=== PATIENT | male | born 1955 | race Caucasian/White ===

== ENCOUNTER 2025-06-30 08:52 | Day surgery (SDC) | payer MEDICARE, BC ==
[~2025-06-30 08:52] MED LIST: Phenylephrine 1% 10 MG/ML SDV ONE; Sodium Chloride 0.9% 10 ML Syringe FLUSH PRN; Sodium Chloride 0.9% 10 ML Syringe FLUSH SCH; fentaNYL 100 MCG/2 ML SDV ONE; fentaNYL 250 MCG/5 ML SDV ONE; propofoL 500 MG/50 ML 50 ML ONE
[2025-06-30] MEDS: Lactated Ringers 1,000 ML IV SCH (09:25)
[2025-06-30] MEDS: oxyCODONE ER 10 MG TAB.ER PO SCH (09:25)
[2025-06-30] MEDS ORDERED: Lactated Ringers 1,000 ML ONE (10:28)
[2025-06-30] MEDS ORDERED: ePHEDrine 50 MG/ML SDV ONE (10:51)
[2025-06-30] MEDS ORDERED: propofoL 500 MG/50 ML 50 ML ONE (10:56)
[2025-06-30] MEDS: Morphine 8 MG, EPINEPHrine 0.3 MG, Cefuroxime 750 MG, Ketorolac 30 MG, Sodium Chloride ... PRN (11:15)
[2025-06-30] MEDS ORDERED: Ropivacaine 0.5% 5 MG/ML 30 ML SDV ONE (11:20)
== END 2025-06-30 15:35 | disposition home or self-care (01) ==
LOC: JD.SDS 08:52
PROVIDERS: ATTEND Orthopaedic Surgery
DX: M17.11 Unilateral primary osteoarthritis, right knee (principal); I10 Essential (primary) hypertension; E78.00 Pure hypercholesterolemia, unspecified; I48.19 Other persistent atrial fibrillation; Z79.01 Long term (current) use of anticoagulants; Z79.899 Other long term (current) drug therapy
CPT/HCPCS: 0055T; 27447; 64447; 73560; 97116; 97161; A9270; C1713; C1776; J0169; J0690; J0697; J1885; J2272; J2371; J2704; J2795; J3010; J3373; J7120; 01402; J3490

== ENCOUNTER 2025-07-12 08:01 | Emergency (ER) | payer MEDICARE, BC ==
[2025-07-12] MEDS ORDERED: Sodium Chloride 0.9% 10 ML Syringe FLUSH PRN (08:32)
[2025-07-12 08:51] LABS: APPEARANCE,URINE CLOUDY (Clear); GLUCOSE,URINE NEGATIVE (Negative); OCCULT BLOOD,URINE 2+ (Negative)
[2025-07-12 08:56] LABS: BASOPHILS ABSOLUTE AUTO 0.1 K/mm3 (0.0-0.2); BASOPHILS PERCENT AUTO 0.3 % (0.0-1.0); EOSINOPHILS ABSOLUTE AUTO 0.0 K/mm3 (0.0-0.4); EOSINOPHILS PERCENT AUTO 0.0 % (0.0-6.0); IMMATURE GRAN ABSOLUTE AUTO 0.24 K/mm3 (0.00-0.05); IMMATURE GRAN PERCENT AUTO 1.0 % (0.0-0.4); LYMPHOCYTES ABSOLUTE AUTO 1.3 K/mm3 (1.0-4.8); LYMPHOCYTES PERCENT AUTO 5.2 % (24.0-44.0); MEAN PLATELET VOLUME 8.7 fl (9.4-12.4); MONOCYTES ABSOLUTE AUTO 1.3 K/mm3 (0.0-0.8); MONOCYTES PERCENT AUTO 5.1 % (0.0-8.0); NEUTROPHILS ABSOLUTE AUTO 21.7 K/mm3 (1.8-7.7); NEUTROPHILS PERCENT AUTO 88.4 % (41.0-71.0); NRBC ABSOLUTE 0.00 (0.00-0.02); NRBC PERCENT 0.0 % (0.0-0.2); PLATELET COUNT,PLT 499 K/mm3 (150-400); RED BLOOD CELL COUNT 5.16 M/mm3 (4.52-5.90); WHITE BLOOD CELL COUNT,WBC 24.59 K/mm3 (3.9-11.3)
[2025-07-12 09:17] LABS: A/G RATIO 0.8 (1-2); ALANINE AMINOTRANSFERASE,ALT 31.0 U/L (16-63); ASPARTATE AMNIOTRANSFERASE,AST 16.0 U/L (15-37); BILIRUBIN TOTAL 1.1 mg/dL (0.2-1.0); BLOOD UREA NITROGEN,BUN 18.0 mg/dL (7-18); CARBON DIOXIDE,CO2 28.0 mEq/L (21-32); CHLORIDE,CL 97.0 mEq/L (98-107); CREATININE 1.2 mg/dL (0.7-1.3); EST CRCL DRUG DOSING (CG) 62.87 mL/min; ESTIMATED GFR 65.0 mL/min (>60); GLUCOSE RANDOM 136.0 mg/dL (70-99); POTASSIUM,K 3.9 mEq/L (3.5-5.1); PROTEIN TOTAL,TP 8.1 g/dl (6.4-8.2); SODIUM,NA 134.0 mEq/L (136-145)
[2025-07-12 09:20] LABS: LACTIC ACID 1.1 mmol/L (0.4-2.0)
[2025-07-12 09:25] LABS: SQUAMOUS EPITHELIAL CELLS,UR 0-5 /hpf (0-5)
[2025-07-12] MEDS: Sodium Chloride 0.9% 10 ML Syringe FLUSH ONE (09:26)
[2025-07-12] MEDS: Iopamidol 612 MG/ML 100 ML Bottle IVPUSH ONE (09:26)
[2025-07-12] MEDS: Diltiazem 120 MG Cap.CD PO ONE (12:20)
== END 2025-07-12 13:00 ==
LOC: JD.ED 08:01
DX: N32.1 Vesicointestinal fistula (principal); N39.0 Urinary tract infection, site not specified; I10 Essential (primary) hypertension; I25.10 Atherosclerotic heart disease of native coronary artery without angina pectoris; Z79.01 Long term (current) use of anticoagulants; Z79.899 Other long term (current) drug therapy
CPT/HCPCS: 36415; 74177; 80053; 81001; 83605; 85025; 86140; 87040; 87086; 96365; 99285; A9270; J2543; J7030; Q9967; 87154